=== PATIENT | female | born 1990 | race American Indian/Alaskan Native ===

== ENCOUNTER 2021-12-30 10:42 | Outpatient (CLI) | payer BC ==
[2021-12-30 11:16] VITALS: BP 116/72
== END 2021-12-30 13:26 | disposition home or self-care (01) ==
LOC: TRG 10:42 → APU 10:43 → TRG 13:26
PROVIDERS: ATTEND Obstetrics & Gynecology
DX: O42.92 Full-term premature rupture of membranes, unspecified as to length of time between rupture and onset of labor (principal); Z3A.40 40 weeks gestation of pregnancy
CPT/HCPCS: 36415; 59025; 84112

== ENCOUNTER 2022-01-03 09:35 | Inpatient (IN) | payer BC ==
[2022-01-03] MEDS ORDERED: OXYTOCIN DRIP 30 UNITS/500 ML BAG IV SCH (19:00)
[2022-01-03] MEDS ORDERED: ACETAMINOPHEN 325 MG TAB PO PRN (19:00)
[2022-01-03] MEDS ORDERED: BUTORPHANOL 2 MG/1 ML INJ IV PRN (19:00)
[2022-01-03] MEDS ORDERED: OXYTOCIN 10 UNIT/1 ML INJ IM PRN (19:00)
[2022-01-03] MEDS ORDERED: fentaNYL 100 MCG/2 ML INJ IV PRN (19:00)
[2022-01-03] MEDS ORDERED: CARBOPROST TROMETHAMINE 250 MCG/1 ML INJ IM PRN (19:00)
[2022-01-03] MEDS ORDERED: MINERAL OIL 30 ML ORAL LIQD PO PRN (19:00)
[2022-01-03] MEDS ORDERED: ePHEDrine SULFATE 50 MG/1 ML INJ IV PRN (19:00)
[2022-01-03] MEDS ORDERED: LOPERAMIDE 2 MG CAP PO PRN (19:00)
[2022-01-03] MEDS ORDERED: LIDOCAINE (2%) 20 MG/1 ML VIAL 20 ML MDV INFILTRATI NR (19:00)
[2022-01-03] MEDS ORDERED: miSOPROStol 200 MCG TAB PR PRN (19:00)
[2022-01-03] MEDS ORDERED: AMPICILLIN/NS 2 GM/100 ML 2 GM/100 ML BAG IV NR (19:00)
[2022-01-03] MEDS ORDERED: METHYLERGONOVINE MALEATE 0.2 MG/ML VIAL IM PRN (19:00)
[2022-01-03] MEDS ORDERED: TERBUTALINE 1 MG/1 ML INJ SUB-Q PRN (19:00)
--- NOTE | 2022-01-03 19:04 | History and Physical Report ---
History of Present Illness Date of examination: 01/03/22 Date of admission: 01/03/2022 Chief complaint: contractions History of present illness: Patient is a at 40w6d presnting with complaint of contractions. Notes they have been ongoing for a week, but have increased in frequency since last night. States they are back to back (5-7 min on further questioning. +FM. Denies leakage of fluid and vaginal bleeding. Past History Past Medical History: no pertinent history Past Surgical History: no surgical history [employer] History: trichomonas Family/Genetic History: none Social history: no significant social history - Obstetrical History Expected Date of Delivery: 12/28/21 Actual Gestation: 40 Week(s) 6 Day(s) : 1 Para: 0 Hx # Term Pregnancies: 0 Number of Pregnancies: 0 Spontaneous Abortions: 0 Induced : 0 Number of Living Children: 0 Medications and Allergies Allergies Allergy/AdvReac Type Severity Reaction Status Date / Time shellfish derived Allergy Severe Swelling Verified 12/30/21 11:21 Home Medications Medication Instructions Recorded Confirmed Last Taken Type Ferrous Fumarate/Ascorbic Acid 1 tab PO BID 01/03/22 01/03/22 01/02/22 10:00 History [Jaclyn-Sequels 65-25 mg Caplet] Vit No.179/Iron/Folic 1 each PO DAILY 01/03/22 01/03/22 01/02/22 10:00 History [ Tablet] Review of Systems Genitourinary: contractions - Vital Signs Vital signs: Vital Signs Pulse BP Pulse Ox 73 140/77 100 01/03/22 10:02 01/03/22 10:02 01/03/22 10:02 Temp Pulse Resp BP Pulse Ox 98 F 105 H 20 120/72 100 01/03/22 10:18 01/03/22 18:55 01/03/22 10:18 01/03/22 18:01 01/03/22 18:55 - Physical Exam Abdomen: Positive: normal appearance, soft, normal bowel sounds. Negative: distention, tenderness Genitourinary (Female): Positive: normal external genitalia Extremities: Positive: normal - Obstetrical Cervical Dilatation: 4.5 Cervical Effacement Percentage: 80 station: -2 Uterine Contraction Frequency (min): q 5-10 Uterine Contraction Pattern: Regular Results All other labs normal. 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
[2022-01-03 19:34] LABS: Hematocrit 34.8 % (30.3-42.9); Hemoglobin 11.2 gm/dl (10.1-14.3); Mean Corpuscular HGB Conc 32 % (30-34); Mean Corpuscular Volume 89 fl (79-97); Platelet Count 151 K/mm3 (140-440); Red Blood Count 3.91 M/mm3 (3.65-5.03); Red Cell Distribution Width 13.9 % (13.2-15.2)
[2022-01-03] MEDS: LACTATED RINGERS 1,000 ML IV SCH (19:36)
[2022-01-03] MEDS: OXYTOCIN DRIP 30 UNITS/500 ML BAG IV SCH (20:15)
[2022-01-04] MEDS: LACTATED RINGERS 1,000 ML IV SCH ×3 (00:31→10:34)
[2022-01-04] MEDS ORDERED: ePHEDrine SULFATE 50 MG/1 ML INJ IV PRN (00:38)
[2022-01-04] MEDS ORDERED: NALOXONE 0.4 MG/1 ML INJ IV PRN (00:38)
--- NOTE | 2022-01-04 00:40 | Anesthesia Day of Surgery ---
Anesthesia Day of Surgery - Day of Surgery Patient Examined: Yes Patient H&P Reviewed: Yes Patient is NPO: Yes Beta Blockers: No Cardiac Clearance: No Pulmonary Clearance: No Armani's Test: N/A
--- NOTE | 2022-01-04 00:40 | Anesthesia Consultation ---
Anesthesia Consult and Med Hx Date of service: 01/04/22 - Airway Anesthetic Teeth Evaluation: Good ROM Head & Neck: Adequate Mental/Hyoid Distance: Adequate Mallampati Class: Class II Intubation Access Assessment: Probably Good - Pulmonary Exam CTA: Yes - Cardiac Exam Cardiac Exam: RRR - Pre-Operative Health Status ASA Pre-Surgery Classification: ASA2 Proposed Anesthetic Plan: Epidural - Pulmonary Hx Smoking: No Hx Asthma: No Hx Respiratory Symptoms: No SOB: No COPD: No Home Oxygen Therapy: No Hx Pneumonia: No Hx Sleep Apnea: No - Cardiovascular System Hx Hypertension: No Hx Coronary Artery Disease: No Hx Heart Attack/AMI: No Hx Angina: No Hx Percutaneous Transluminal Coronary Angioplasty (PTCA): No Hx Cardia Arrhythmia: No Hx Pacemaker: No Hx Internal Defibrillator: No Hx Valvular Heart Disease: No Hx Heart Murmur: No Hx Peripheral Vascular Disease: No - Central Nervous System Hx Neuromuscular Disorder: No Hx Seizures: No CVA: No Hx Back Pain: No Hx Psychiatric Problems: No - Gastrointestinal Hx Ulcer: No Hx Gastroesophageal Reflux Disease: No - Endocrine Hx Renal Disease: No Hx End Stage Renal Disease: No Hx Cirrhosis: No Hx Liver Disease: No Hx Insulin Dependent Diabetes: No Hx Non-Insulin Dependent Diabetes: No Hx Thyroid Disease: No Hx Hypothyroidism: No Hx Hyperthyroidism: No - Hematic Hx Anemia: Yes Hx Sickle Cell Disease: No - Other Systems Hx Alcohol Use: No Hx Substance Use: No Hx Cancer: No Hx Obesity: No
--- NOTE | 2022-01-04 00:41 | Progress Note ---
Labor Epidural - Labor Epidural Start Time: 00:16 Stop Time: 00:22 Performed by:: FINN CASTRO Procedure: Epidural Requested for Labor Pain. H&P and PT Chart reviewed and consent obtained. Time out performed and the procedure was explained, all questions answered. Patient was placed in a sitting position with monitors applied. The PTs back was prepped and draped in usual sterile fashion. The Skin was localized with 3 mL of 1% lidocaine at L3-L4. A 17-gauge Touhy epidural needle was advanced to WILDA with saline at 7 cm and no blood/CSF was noted via epidural needle. Epidural catheter was advanced to 12 cm. There was negative aspiration for blood and CSF in the catheter and negative response to a test dose of 3 ml 1.5% lidocaine w/ Epi and a sterile dressing was applied Patient tolerated the procedure well and there were no immediate complications noted.
[2022-01-04] MEDS: AMPICILLIN/NS 1 GM/50 ML 1 GM/50 ML BAG IV SCH ×3 (01:30→09:07)
[2022-01-04] MEDS: fentaNYL-BUPIV 2 MCG/ML-0.125% 200 MCG/100 ML BAG EPIDURAL SCH ×2 (01:41→09:08)
--- NOTE | 2022-01-04 08:11 | Progress Note ---
Assessment and Plan - Patient Problems (1) 41 weeks gestation of Current Visit: Yes Status: Acute Plan to address problem: Labor augmentation Pitocin Plan for AROM Pain management epidural Anticipate (2) GBS carrier Current Visit: Yes Status: Acute Plan to address problem: Continue ampicillin per protocol Subjective - Subjective Date of service: 01/04/22 Patient reports: movement normal, contractions Objective - Vital Signs Vital Signs: Vital Signs - 12hr 01/03/22 01/03/22 01/03/22 20:30 20:35 20:40 Pulse Rate 98 H 91 H 95 H Respiratory Rate Blood Pressure O2 Sat by Pulse 99 100 99 Oximetry 01/03/22 01/03/22 01/03/22 20:45 20:50 20:55 Pulse Rate 91 H 91 H 90 Respiratory Rate Blood Pressure O2 Sat by Pulse 100 99 100 Oximetry 01/03/22 01/03/22 01/03/22 21:19 21:24 21:29 Pulse Rate 98 H 98 H 93 H Respiratory Rate Blood Pressure O2 Sat by Pulse 100 100 100 Oximetry 01/03/22 01/03/22 01/03/22 21:34 21:39 21:44 Pulse Rate 87 90 110 H Respiratory Rate Blood Pressure O2 Sat by Pulse 100 99 100 Oximetry 01/03/22 01/03/22 01/03/22 21:49 21:51 21:54 Pulse Rate 90 109 H 94 H Respiratory Rate Blood Pressure 132/76 O2 Sat by Pulse 100 100 Oximetry 01/03/22 01/03/22 01/03/22 21:59 22:04 22:09 Pulse Rate 90 86 91 H Respiratory Rate Blood Pressure O2 Sat by Pulse 100 99 100 Oximetry 01/03/22 01/03/22 01/03/22 22:11 22:14 22:19 Pulse Rate 95 H 80 Respiratory 16 Rate Blood Pressure O2 Sat by Pulse 99 98 Oximetry 01/03/22 01/03/22 01/03/22 22:21 22:24 22:29 Pulse Rate 86 86 87 Respiratory Rate Blood Pressure 104/55 O2 Sat by Pulse 99 100 Oximetry 01/03/22 01/03/22 01/03/22 22:34 22:39 22:44 Pulse Rate 87 81 85 Respiratory Rate Blood Pressure O2 Sat by Pulse 97 98 98 Oximetry 08/21/22 08/21/22 08/21/22 22:49 22:52 22:54 Pulse Rate 89 93 H 88 Respiratory Rate Blood Pressure 113/58 O2 Sat by Pulse 98 96 Oximetry 01/03/22 01/03/22 01/03/22 22:55 22:59 23:04 Pulse Rate 86 86 103 H Respiratory Rate Blood Pressure O2 Sat by Pulse 93 98 100 Oximetry 01/03/22 01/03/22 01/03/22 23:06 23:09 23:14 Pulse Rate 85 84 90 Respiratory Rate Blood Pressure O2 Sat by Pulse 94 94 96 Oximetry 01/03/22 01/03/22 01/03/22 23:15 23:19 23:21 Pulse Rate 87 90 105 H Respiratory Rate Blood Pressure O2 Sat by Pulse 92 93 83 L Oximetry 01/03/22 01/03/22 01/03/22 23:22 23:24 23:28 Pulse Rate 96 H 83 82 Respiratory Rate Blood Pressure 125/67 O2 Sat by Pulse 96 92 Oximetry 01/03/22 01/03/22 01/03/22 23:29 23:34 23:39 Pulse Rate 106 H 88 92 H Respiratory Rate Blood Pressure O2 Sat by Pulse 86 98 98 Oximetry 01/03/22 01/03/22 01/03/22 23:44 23:49 23:51 Pulse Rate 110 H 83 99 H Respiratory Rate Blood Pressure 137/81 O2 Sat by Pulse 98 97 Oximetry 01/03/22 01/04/22 01/04/22 23:54 00:09 00:11 Pulse Rate 84 84 88 Respiratory Rate Blood Pressure 122/66 O2 Sat by Pulse 98 97 Oximetry 01/04/22 01/04/22 01/04/22 00:14 00:15 00:19 Pulse Rate 84 101 H 96 H Respiratory Rate Blood Pressure O2 Sat by Pulse 98 89 100 Oximetry 01/04/22 01/04/22 01/04/22 00:21 00:22 00:24 Pulse Rate 101 H 88 92 H Respiratory Rate Blood Pressure 134/76 126/69 116/61 O2 Sat by Pulse 98 Oximetry 01/04/22 01/04/22 01/04/22 00:26 00:27 00:28 Pulse Rate 99 H 78 81 Respiratory Rate Blood Pressure 138/70 121/63 O2 Sat by Pulse 86 Oximetry 01/04/22 01/04/22 01/04/22 00:29 00:30 00:33 Pulse Rate 92 H 81 96 H Respiratory Rate Blood Pressure 120/62 104/56 O2 Sat by Pulse 98 Oximetry 01/04/22 01/04/22 01/04/22 00:34 00:35 00:39 Pulse Rate 91 H 84 76 Respiratory Rate Blood Pressure 114/62 O2 Sat by Pulse 99 90 76 L Oximetry 01/04/22 01/04/22 01/04/22 00:41 00:44 00:46 Pulse Rate 64 95 H 95 H Respiratory Rate Blood Pressure 124/59 O2 Sat by Pulse 80 L 100 94 Oximetry 01/04/22 01/04/22 01/04/22 00:48 00:49 00:50 Pulse Rate 91 H 90 96 H Respiratory Rate Blood Pressure 101/58 105/54 O2 Sat by Pulse 100 Oximetry 01/04/22 01/04/22 01/04/22 00:54 00:56 00:59 Pulse Rate 87 85 78 Respiratory Rate Blood Pressure 98/55 O2 Sat by Pulse 100 100 Oximetry 01/04/22 01/04/22 01/04/22 01:00 01:04 01:07 Pulse Rate 88 83 84 Respiratory Rate Blood Pressure 102/61 102/55 O2 Sat by Pulse 100 Oximetry 01/04/22 01/04/22 01/04/22 01:09 01:11 01:13 Pulse Rate 93 H 91 H 77 Respiratory Rate Blood Pressure 117/65 O2 Sat by Pulse 100 87 Oximetry 01/04/22 01/04/22 01/04/22 01:14 01:19 01:25 Pulse Rate 93 H 93 H 84 Respiratory Rate Blood Pressure 109/58 O2 Sat by Pulse 99 100 100 Oximetry 01/04/22 01/04/22 01/04/22 01:30 01:35 01:40 Pulse Rate 82 81 79 Respiratory Rate Blood Pressure O2 Sat by Pulse 100 100 100 Oximetry 01/04/22 01/04/22 01/04/22 01:45 01:46 01:50 Pulse Rate 75 74 81 Respiratory Rate Blood Pressure 102/62 O2 Sat by Pulse 100 100 Oximetry 01/04/22 01/04/22 01/04/22 01:55 02:00 02:05 Pulse Rate 79 84 74 Respiratory Rate Blood Pressure O2 Sat by Pulse 100 100 100 Oximetry 01/04/22 01/04/22 01/04/22 02:07 02:10 02:15 Pulse Rate 77 73 81 Respiratory Rate Blood Pressure 101/55 O2 Sat by Pulse 100 100 Oximetry 01/04/22 01/04/22 01/04/22 02:20 02:25 02:30 Pulse Rate 66 72 63 Respiratory Rate Blood Pressure O2 Sat by Pulse 100 100 100 Oximetry 01/04/22 01/04/22 01/04/22 02:31 02:35 02:40 Pulse Rate 64 73 91 H Respiratory Rate Blood Pressure 90/54 O2 Sat by Pulse 100 100 Oximetry 01/04/22 01/04/22 01/04/22 02:44 02:45 02:50 Pulse Rate 83 81 85 Respiratory Rate Blood Pressure 112/68 112/69 O2 Sat by Pulse 100 100 Oximetry 01/04/22 01/04/22 01/04/22 02:55 03:00 03:01 Pulse Rate 83 76 71 Respiratory Rate Blood Pressure 113/66 O2 Sat by Pulse 99 100 Oximetry 01/04/22 01/04/22 01/04/22 03:05 03:10 03:15 Pulse Rate 84 75 71 Respiratory Rate Blood Pressure O2 Sat by Pulse 100 100 100 Oximetry 01/04/22 01/04/22 01/04/22 03:17 03:20 03:25 Pulse Rate 75 80 71 Respiratory Rate Blood Pressure 109/64 O2 Sat by Pulse 100 100 Oximetry 01/04/22 01/04/22 01/04/22 03:30 03:35 03:40 Pulse Rate 79 74 77 Respiratory Rate Blood Pressure 113/67 O2 Sat by Pulse 100 100 100 Oximetry 01/04/22 01/04/22 01/04/22 03:45 03:50 03:55 Pulse Rate 77 75 76 Respiratory Rate Blood Pressure 111/68 O2 Sat by Pulse 99 99 99 Oximetry 01/04/22 01/04/22 01/04/22 04:00 04:01 04:05 Pulse Rate 78 75 76 Respiratory Rate Blood Pressure 122/75 O2 Sat by Pulse 100 100 Oximetry 01/04/22 01/04/22 01/04/22 04:10 04:15 04:20 Pulse Rate 81 78 82 Respiratory Rate Blood Pressure 111/66 O2 Sat by Pulse 100 100 100 Oximetry 01/04/22 01/04/22 01/04/22 04:25 04:30 04:31 Pulse Rate 78 75 78 Respiratory Rate Blood Pressure 116/68 O2 Sat by Pulse 100 100 Oximetry 01/04/22 01/04/22 01/04/22 04:35 04:40 04:45 Pulse Rate 78 78 79 Respiratory Rate Blood Pressure 115/73 O2 Sat by Pulse 100 100 100 Oximetry 01/04/22 01/04/22 01/04/22 04:50 04:55 05:00 Pulse Rate 78 85 85 Respiratory Rate Blood Pressure O2 Sat by Pulse 100 100 100 Oximetry 01/04/22 01/04/22 01/04/22 05:01 05:05 05:10 Pulse Rate 71 80 76 Respiratory Rate Blood Pressure 111/61 O2 Sat by Pulse 99 100 Oximetry 01/04/22 01/04/22 01/04/22 05:15 05:17 05:20 Pulse Rate 72 76 78 Respiratory Rate Blood Pressure 124/74 O2 Sat by Pulse 100 100 Oximetry 01/04/22 01/04/22 01/04/22 05:25 05:30 05:35 Pulse Rate 75 91 H 71 Respiratory Rate Blood Pressure 106/78 O2 Sat by Pulse 100 100 100 Oximetry 01/04/22 01/04/22 01/04/22 05:40 05:45 05:46 Pulse Rate 75 72 75 Respiratory Rate Blood Pressure 116/70 O2 Sat by Pulse 100 100 Oximetry 01/04/22 01/04/22 01/04/22 05:50 05:55 06:00 Pulse Rate 82 101 H 76 Respiratory Rate Blood Pressure 118/72 O2 Sat by Pulse 100 100 94 Oximetry 01/04/22 01/04/22 01/04/22 06:05 06:10 06:11 Pulse Rate 80 79 76 Respiratory Rate Blood Pressure O2 Sat by Pulse 100 95 91 Oximetry 01/04/22 01/04/22 01/04/22 06:15 06:17 06:20 Pulse Rate 82 82 78 Respiratory Rate Blood Pressure 117/70 O2 Sat by Pulse 100 92 100 Oximetry 01/04/22 01/04/22 01/04/22 06:25 06:30 06:32 Pulse Rate 74 77 72 Respiratory Rate Blood Pressure 114/71 O2 Sat by Pulse 99 97 94 Oximetry 01/04/22 01/04/22 01/04/22 06:35 06:40 06:42 Pulse Rate 77 69 72 Respiratory Rate Blood Pressure O2 Sat by Pulse 98 97 94 Oximetry 0801/04/22 01/04/22 06:45 06:48 06:50 Pulse Rate 77 80 79 Respiratory Rate Blood Pressure 117/71 O2 Sat by Pulse 98 92 100 Oximetry 01/04/22 01/04/22 01/04/22 06:55 07:00 07:01 Pulse Rate 82 95 H 85 Respiratory Rate Blood Pressure 118/70 O2 Sat by Pulse 100 99 Oximetry 01/04/22 01/04/22 01/04/22 07:02 07:05 07:10 Pulse Rate 89 81 79 Respiratory Rate Blood Pressure O2 Sat by Pulse 94 100 100 Oximetry 01/04/22 01/04/22 01/04/22 07:15 07:16 07:20 Pulse Rate 93 H 91 H 94 H Respiratory Rate Blood Pressure 124/74 O2 Sat by Pulse 100 100 Oximetry 01/04/22 01/04/22 01/04/22 07:25 07:30 07:31 Pulse Rate 94 H 87 91 H Respiratory Rate Blood Pressure 133/89 O2 Sat by Pulse 100 100 Oximetry 01/04/22 01/04/22 01/04/22 07:35 07:40 07:45 Pulse Rate 105 H 76 85 Respiratory Rate Blood Pressure 121/73 O2 Sat by Pulse 99 100 100 Oximetry 01/04/22 01/04/22 01/04/22 07:50 07:55 08:00 Pulse Rate 79 77 78 Respiratory Rate Blood Pressure 128/72 O2 Sat by Pulse 100 100 100 Oximetry 01/04/22 01/04/22 08:05 08:10 Pulse Rate 76 78 Respiratory Rate Blood Pressure O2 Sat by Pulse 100 99 Oximetry - Exam Narrative Exam: pt in bed resting quietly. PT has epidural. No concerns voiced at this time. Discussed POC to re-start pitocin, and AROM at noon. Agrees with POC. Anticipate . FHR: category 1 Uterine Contraction Monitor Mode: External Uterine Contraction Pattern: Regular Uterine Contraction Intensity: Moderate - Labs Labs: Laboratory Results - last 24 hr 01/03/22 01/03/22 18:45 18:45 WBC 8.5 RBC 3.91 Hgb 11.2 Hct 34.8 MCV 89 MCH 29 MCHC 32 RDW 13.9 Plt Count 151 Blood Type A POSITIVE Antibody Screen Negative
[2022-01-04] MEDS: OXYTOCIN DRIP 30 UNITS/500 ML BAG IV SCH (09:07)
[2022-01-04] MEDS ORDERED: BUPIVACAINE/PF (0.25%) 2.5 MG/ML 10 ML VIAL INFILTRATI ONE (13:28)
[2022-01-04] MEDS ORDERED: LIDOCAINE (2%) 20 MG/1 ML VIAL 20 ML MDV INFILTRATI ONE ×2 (15:06→15:30)
[2022-01-04] MEDS ORDERED: ACETAMINOPHEN 325 MG TAB PO PRN ×2 (15:19→16:04)
[2022-01-04] MEDS ORDERED: BUTORPHANOL 2 MG/1 ML INJ IV PRN ×2 (15:19)
[2022-01-04] MEDS ORDERED: fentaNYL 100 MCG/2 ML INJ IV PRN (15:19)
[2022-01-04] MEDS ORDERED: miSOPROStol 200 MCG TAB PR PRN (15:19)
[2022-01-04] MEDS ORDERED: NalbUPHINE 10 MG/1 ML INJ IV PRN (15:19)
[2022-01-04] MEDS ORDERED: LACTATED RINGERS 1,000 ML IV SCH (15:30)
--- NOTE | 2022-01-04 15:42 | Procedure Note ---
OB Delivery Note - Delivery Date of Delivery: 01/04/22 Case Manager Specialist: CHANELL CONTRERAS Estimated blood loss: 200cc - Vaginal Delivery presentation: vertex Delivery position: OA Intrapartum events: none Delivery induction: none Delivery augmentation: rupture of membranes Delivery monitor: external FHT, external uterine Route of delivery: Delivery placenta: spontaneous Delivery cord: 3 umbilical vessels Episiotomy: none Delivery laceration: 1st degree Delivery repair: vicryl Anesthesia: local (nuchal cord around left ankle) Delivery comments: of a viable female infant AGARS 7/ Female infant delivered over an intact perineum in MERVIN position. Shoulders and body delivered with out difficulty. Loose nuchal cord around left ankle noted. Baby placed on mom's abdomen. Cord clamped then cut by FOB. Placenta delivered spontaneously, intact and complete. 3 vessel cord noted. IV pitocin started. Perineum, vagina, and cervix inspected. 1st degree laceration with hemostasis noted. Laceration repaired with a figure 8 stitch. EBL 250. APGARS 7/9. weight 6lbs 15oz. pt and infant in stable condition in care of RN. - Infant A at 1 minute: 7 (wgt 6#15oz) at 5 minutes: 9 Gender: Female
[2022-01-04] MEDS ORDERED: MAGNESIUM HYDROXIDE (MOM) ORAL LIQD UDC PO PRN (16:04)
[2022-01-04] MEDS ORDERED: LANOLIN/ZINC/DIMETHICONE (LANSINOH) 7 GM TP PRN (16:04)
[2022-01-04] MEDS ORDERED: PROMETHAZINE 25 MG RECT SUPP PR PRN (16:04)
[2022-01-04] MEDS ORDERED: BENZOCAINE/MENTHOL 20/0.5% TOP SPRAY 56 GM TP PRN (16:04)
[2022-01-04] MEDS ORDERED: WITCH HAZEL/ GLYCERIN PAD TP PRN (16:04)
[2022-01-04] MEDS ORDERED: diphenhydrAMINE 25 MG CAP PO PRN (16:04)
[2022-01-04] MEDS ORDERED: ONDANSETRON 4 MG/2 ML INJ IV PRN (16:04)
[2022-01-04] MEDS ORDERED: PROMETHAZINE 25 MG TAB PO PRN (16:04)
[2022-01-04] MEDS: IBUPROFEN 800 MG TAB PO SCH ×2 (16:23→23:58)
[2022-01-05] MEDS: IBUPROFEN 800 MG TAB PO SCH ×2 (05:42→12:17)
[2022-01-05 06:03] LABS: Hematocrit 29.4 % (30.3-42.9); Hemoglobin 9.5 gm/dl (10.1-14.3)
--- NOTE | 2022-01-05 08:30 | Discharge Summary ---
Providers - Providers Date of Admission: 01/03/22 18:55 Date of discharge: 01/05/22 (Desires d/c today) Attending physician: CONNER ROY MD Primary care physician: CONNER ROY MD Hospitalization Reason for admission: Labor Condition: Good Pertinent studies: Post delivery H&H 9.5/29.4 Procedures: Hospital course: uncomplicated and course Disposition: 01 HOME / SELF CARE / HOMELESS Final Discharge Diagnosis (Prints w/discharge instructions): s/p Time spent for discharge: 20 - Discharge Diagnoses (1) (normal spontaneous vaginal delivery) Status: Acute Core Measure Documentation - Palliative Care Palliative Care/ Comfort Measures: Not Applicable - Core Measures Any of the following diagnoses?: none Exam - Physical Exam Narrative exam: pt stable, locia scant and uterus firm and midline 2 below umbilicus. VSSAF. Breast and bottle feeding. - Constitutional Vitals: Temp Pulse Resp BP Pulse Ox 98.4 F 105 H 18 127/68 100 01/04/22 23:45 01/04/22 23:46 01/05/22 06:27 01/04/22 23:45 01/04/22 23:46 General appearance: Present: no acute distress - EENT Eyes: Present: EOM intact ENT: hearing intact - Neck Neck: Present: normal ROM - Respiratory Respiratory effort: normal - Cardiovascular Rhythm: regular - Extremities Extremities: No edema, Full ROM - Abdominal General gastrointestinal: Present: soft, non-tender, normal bowel sounds Female genitourinary: Present: normal - Integumentary Integumentary: Present: clear, warm, dry - Musculoskeletal Musculoskeletal: strength equal bilaterally - Psychiatric Psychiatric: appropriate mood/affect - Neurologic Neurologic: CNII-XII intact Plan Activity: no restrictions Diet: regular Follow up with: CONNER ROY MD [Primary Care Provider] - 02/09/22 (Congratulations! Please call [facility] office at [phone] to schedule your 4 week appointment. Call for any questions or concerns.)
--- NOTE | 2022-01-05 09:24 | Post Anesthesia Evaluation ---
- Post Anesthesia Evaluation Patient Participated: Yes Airway Patent: Yes Stable Respiratory Function: Yes Nausea/Vomiting: No Temp > 96.8F: Yes Pain Manageable: Yes Adequeate Hydration: Yes Anesthesia Complications: No Block Receding Appropriately: Yes Patient on Ventilator: No
[2022-01-05] MEDS ORDERED: PRENATAL VIT27-FE FUMARATE-FOLIC ACID VIT TAB PO SCH (10:00)
[2022-01-05 17:14] VITALS: BP 118/75
== END 2022-01-05 18:46 | disposition home or self-care (01) | DRG 807 ==
LOC: TRG 09:35 → APU 09:37 → TRG 18:54 → OBSVTOIN 18:55 → LD 18:55 → OB 01-04 20:02
PROVIDERS: ADMIT Student in an Organized Health Care Education/Training Program; ATTEND Student in an Organized Health Care Education/Training Program
PROC: 10E0XZZ Delivery of Products of Conception, External Approach (ICD-10-PCS; principal; 2022-01-04)
PROC: 3E0R3BZ Introduction of Anesthetic Agent into Spinal Canal, Percutaneous Approach (ICD-10-PCS; 2022-01-04)
PROC: 00HU33Z Insertion of Infusion Device into Spinal Canal, Percutaneous Approach (ICD-10-PCS; 2022-01-04)
PROC: 0HQ9XZZ Repair Perineum Skin, External Approach (ICD-10-PCS; 2022-01-04)
DX: O99.02 Anemia complicating childbirth (principal); Z37.0 Single live birth; O70.0 First degree perineal laceration during delivery; O99.824 Streptococcus B carrier state complicating childbirth; Z3A.40 40 weeks gestation of pregnancy; Z20.822 Contact with and (suspected) exposure to COVID-19; Z91.013 Allergy to seafood
CPT/HCPCS: 36415; 59025; 85014; 85018; 85027; 86850; 86900; 86901; G0378; J3490; J0290; J0595; J2590; J7120; U0003